=== PATIENT | male | born 1960 | race Caucasian/White ===

== ENCOUNTER 2024-03-12 17:38 | Outpatient (CLI) | payer BC | END 2024-03-12 17:39 | disposition home or self-care (01) | LOC: SCSRAD 17:38 | PROVIDERS: ATTEND Family Medicine | DX: M79.645 Pain in left finger(s) (principal); S63.052A Subluxation of other carpometacarpal joint of left hand, initial encounter ==

== ENCOUNTER 2024-10-22 08:40 | Outpatient (CLI) | payer BC | END 2024-10-22 08:41 | disposition home or self-care (01) | LOC: SCSRAD 08:40 | PROVIDERS: ATTEND Family Medicine | DX: M54.50 Low back pain, unspecified (principal); M47.816 Spondylosis without myelopathy or radiculopathy, lumbar region | CPT/HCPCS: 72120 ==